=== PATIENT | female | born 1950 | race Caucasian/White ===

== ENCOUNTER → 2019-11-11 | Outpatient (CLI) | payer MEDICARE | LOC: RAD 15:21 | DX: M79.89 Other specified soft tissue disorders (principal); M77.9 Enthesopathy, unspecified ==

== ENCOUNTER → 2020-03-09 | Outpatient (CLI) | payer MEDICARE | LOC: RAD 09:34 | DX: M19.031 Primary osteoarthritis, right wrist (principal); M19.041 Primary osteoarthritis, right hand ==

== ENCOUNTER → 2020-04-20 | Outpatient (CLI) | payer MEDICARE ==
[2020-04-20 07:52] LABS: POTASSIUM 4.3 mmol/L (3.5-5.1)
[2020-04-20 07:53] LABS: CALCIUM 9.2 mg/dL (8.3-10.5)
[2020-04-20 07:55] LABS: TOTAL PROTEIN 7.5 g/dL (6.2-8.1)
[2020-04-20 07:57] LABS: TOTAL BILIRUBIN 1.3 mg/dL (0.2-1.2)
[2020-04-20 08:04] LABS: EOS # 0.4 (0.04-0.40); EOS % 3.8 % (1.0-5.0); HEMATOCRIT 44.1 % (37.0-47.0); HEMOGLOBIN 14.8 g/dL (12.5-16.0); LYMPH# 2.9 (1.50-4.00); MEAN CELL VOLUME 88 fl (78-100); MEAN CORPUSCULAR HEMOGLOBIN 30 pg (27-31); MEAN CORPUSCULAR HGB CONC 34 g/dL (33-37); MEAN PLATELET VOLUME 9.6 fl (7.4-10.4); MONO # 0.6 (0.20-0.80); NEU # 6.3 (1.40-6.50); PLATELET COUNT 350 K/mm3 (130-400); RED BLOOD COUNT 5.02 M/mm3 (4.10-5.30); RED CELL DISTRIBUTION WIDTH 13.8 % (11.5-14.5); WHITE BLOOD COUNT 10.2 K/mm3 (4.8-10.8)
[2020-04-22 11:26] LABS: ANA SCREEN with REFLEX Negative (Negative)
== END ==
LOC: LAB 06:59
PROVIDERS: Physician Assistant
DX: Z00.00 Encounter for general adult medical examination without abnormal findings (principal); Z12.11 Encounter for screening for malignant neoplasm of colon; Z12.31 Encounter for screening mammogram for malignant neoplasm of breast; M15.9 Polyosteoarthritis, unspecified; M79.641 Pain in right hand; E78.5 Hyperlipidemia, unspecified; G43.709 Chronic migraine without aura, not intractable, without status migrainosus

== ENCOUNTER → 2020-05-02 | Outpatient (CLI) | payer MEDICARE | LOC: MAMMO 15:48 | DX: Z12.31 Encounter for screening mammogram for malignant neoplasm of breast (principal); Z00.00 Encounter for general adult medical examination without abnormal findings; M25.50 Pain in unspecified joint; G89.29 Other chronic pain ==

== ENCOUNTER → 2020-05-02 | Outpatient (CLI) | payer MEDICARE | LOC: RAD 15:52 | DX: M85.80 Other specified disorders of bone density and structure, unspecified site (principal) ==

== ENCOUNTER → 2020-05-21 | Outpatient (CLI) | payer MEDICARE | LOC: LAB 11:47 | DX: Z20.828 Contact with and (suspected) exposure to other viral communicable diseases (principal) ==

== ENCOUNTER → 2020-05-24 | Day surgery (SDC) | payer MEDICARE | LOC: MSO 08:12 | DX: Z12.11 Encounter for screening for malignant neoplasm of colon (principal); Z90.710 Acquired absence of both cervix and uterus; Z91.018 Allergy to other foods; M19.90 Unspecified osteoarthritis, unspecified site; G43.909 Migraine, unspecified, not intractable, without status migrainosus | CPT/HCPCS: G0121; 00812; J2704; J7120 ==

== ENCOUNTER → 2023-10-02 | Outpatient (CLI) | payer MEDICARE ==
[2023-10-02 08:48] LABS: BASO # 0.03 K/mm3 (0.02-0.10); EOS # 0.27 K/mm3 (0.04-0.40); EOS % 3.5 % (1.0-5.0); HEMOGLOBIN 14.5 g/dL (12.5-16.0); LYMPH# 2.26 K/mm3 (1.50-4.00); MEAN CELL VOLUME 88 fl (78-100); MEAN CORPUSCULAR HEMOGLOBIN 30 pg (27-31); MEAN CORPUSCULAR HGB CONC 34 g/dL (33-37); MEAN PLATELET VOLUME 8.9 fl (7.4-10.4); MONO # 0.66 K/mm3 (0.20-0.80); NEU # 4.55 K/mm3 (1.40-6.50); PLATELET COUNT 257 K/mm3 (130-400); RED BLOOD COUNT 4.88 M/mm3 (4.10-5.30); RED CELL DISTRIBUTION WIDTH 12.6 % (11.5-14.5); WHITE BLOOD COUNT 7.8 K/mm3 (4.8-10.8)
[2023-10-02 08:56] LABS: ALBUMIN 3.9 g/dL (3.4-4.8); SODIUM 141 mmol/L (136-145)
[2023-10-02 08:57] LABS: CALCIUM 9.4 mg/dL (8.3-10.5)
[2023-10-02 08:58] LABS: GLUCOSE 70 mg/dL (65-105); TOTAL PROTEIN 6.8 g/dL (6.2-8.1)
[2023-10-02 08:59] LABS: CARBON DIOXIDE 23 mmol/L (23-31)
[2023-10-02 09:00] LABS: TOTAL BILIRUBIN 0.8 mg/dL (0.2-1.2)
[2023-10-02 09:03] LABS: AST-SGOT 18 U/L (5-34)
[2023-10-02 09:05] LABS: ALT/SGPT 22 U/L (0-55)
[2023-10-02 09:12] LABS: TROPONIN-I < 0.030 ng/mL (0.00-0.033)
[2023-10-02 09:24] LABS: D-DIMER 0.5 mg/L FEU (0.15-0.50)
== END ==
LOC: LAB 08:22
PROVIDERS: Physician Assistant
DX: R06.09 Other forms of dyspnea (principal); E78.5 Hyperlipidemia, unspecified; R53.83 Other fatigue; K90.9 Intestinal malabsorption, unspecified

== ENCOUNTER → 2024-07-28 | Outpatient (CLI) | payer MEDICARE | LOC: RAD 09:57 | DX: R07.81 Pleurodynia (principal) ==

== ENCOUNTER → 2024-09-14 | Outpatient (CLI) | payer MEDICARE ==
[2024-09-14 11:29] LABS: BASO # 0.03 K/mm3 (0.02-0.10); EOS # 0.34 K/mm3 (0.04-0.40); EOS % 4.3 % (1.0-5.0); HEMATOCRIT 40.8 % (37.0-47.0); HEMOGLOBIN 13.9 g/dL (12.5-16.0); LYMPH# 2.32 K/mm3 (1.50-4.00); MEAN CELL VOLUME 88 fl (78-100); MEAN CORPUSCULAR HEMOGLOBIN 30 pg (27-31); MEAN CORPUSCULAR HGB CONC 34 g/dL (33-37); MEAN PLATELET VOLUME 9.2 fl (7.4-10.4); MONO # 0.56 K/mm3 (0.20-0.80); NEU # 4.57 K/mm3 (1.40-6.50); PLATELET COUNT 298 K/mm3 (130-400); RED BLOOD COUNT 4.63 M/mm3 (4.10-5.30); RED CELL DISTRIBUTION WIDTH 13.2 % (11.5-14.5); WHITE BLOOD COUNT 7.8 K/mm3 (4.8-10.8)
[2024-09-14 11:35] LABS: ALBUMIN 3.9 g/dL (3.4-4.8)
[2024-09-14 11:37] LABS: CALCIUM 8.8 mg/dL (8.3-10.5)
[2024-09-14 11:38] LABS: TOTAL PROTEIN 7.3 g/dL (6.2-8.1)
[2024-09-14 11:40] LABS: TOTAL BILIRUBIN 1.1 mg/dL (0.2-1.2)
== END ==
LOC: LAB 10:41
PROVIDERS: Physician Assistant
DX: R53.83 Other fatigue (principal)